=== PATIENT | male | born 1940 ===

== ENCOUNTER 2018-04-12 07:18 | Day surgery (SDC) | payer OTHER ==
[~2018-04-12 07:18] MED LIST: DOLOGESIC-DF 51 EACH PO; ELIQUIS5 MG PO; METOPROLOL ER-1 EACH PO; NAMENDA10 MG PO; RAZADYNE ER16 MG PO; SERTRALINE HCL25 MG PO; SIMVASTATIN20 MG PO
== END 2018-04-12 18:00 | disposition home or self-care (01) ==
LOC: CIR.AMB 07:18
DX: S52.92XA Unspecified fracture of left forearm, initial encounter for closed fracture (principal)